=== PATIENT | female | born 1950 | race Two or more races ===

== ENCOUNTER 2019-09-07 12:32 | Inpatient (IN) | payer OTHER ==
[~2019-09-07] VITALS: Ht 152.4 cm; Wt 51.7 kg
[2019-09-15] MEDS ORDERED: DUI500 PO (16:30)
[2019-09-15] MEDS ORDERED: ELIQUIS2.5 MG PO (16:31)
[2019-09-15] MEDS ORDERED: PERCOCET 5-3251 EACH PO (16:34)
== END 2019-09-15 17:39 | disposition home or self-care (01) | DRG 470 ==
LOC: O/R 09-13 05:30 → SURH 09-13 05:30 → O/R 09-13 10:00 → SURH 09-13 10:05
PROVIDERS: ADMIT Orthopaedic Surgery; ATTEND Orthopaedic Surgery
PROC: 0MNN0ZZ Release Right Knee Bursa and Ligament, Open Approach (ICD-10-PCS; 2019-09-13)
PROC: 0SRC0J9 Replacement of Right Knee Joint with Synthetic Substitute, Cemented, Open Approach (ICD-10-PCS; principal; 2019-09-13 10:45)
DX: M17.11 Unilateral primary osteoarthritis, right knee (principal); M22.11 Recurrent subluxation of patella, right knee; D64.9 Anemia, unspecified